=== PATIENT | male | born 1995 | race Caucasian/White ===

== ENCOUNTER 2021-08-28 14:04 | Emergency (ER) | payer OTHER, SELFPAY | END 2021-08-28 16:29 | disposition home or self-care (01) | LOC: ERS 14:04 | DX: S92.331A Displaced fracture of third metatarsal bone, right foot, initial encounter for closed fracture (principal); V89.2XXA Person injured in unspecified motor-vehicle accident, traffic, initial encounter | CPT/HCPCS: 71045; G0390 ==